=== PATIENT | female | born 1935 | race American Indian/Alaskan Native ===

== ENCOUNTER 2018-06-18 06:36 | Inpatient (IN) | payer MEDICARE, MEDICAID ==
[2018-06-18 06:37] VITALS: BMI 36.8
[2018-06-18 07:35] LABS: BASO # 0.1 K/uL (0.0-0.2); BASO % 1.1 % (0.0-2.0); EOS # 0.2 K/uL (0.0-0.7); EOS % 3.4 % (0.0-4.0); HEMOGLOBIN 10.6 g/dL (11.0-16.0); LYMPH # 0.8 K/uL (1.0-4.3); MEAN CELL VOLUME 76.3 fL (81.0-99.0); MEAN CORPUSCULAR HGB CONC 31.4 g/dL (33.0-37.0); MONO # 0.7 K/uL (0.0-0.8); NEUT # 5.5 K/uL (1.8-7.0); NEUT % 75.5 % (50.0-75.0); RBC 4.42 Mil/uL (3.80-5.20); RED CELL DISTRIBUTION WIDTH 19.1 % (11.5-14.5); WHITE BLOOD COUNT 7.3 K/uL (4.8-10.8)
[2018-06-18 07:41] LABS: INR 1.1; PROTHROMBIN TIME 11.8 SECONDS (9.7-12.2)
[2018-06-18 08:12] LABS: ALB/GLOB RATIO 1.7 (1.0-2.1); ALBUMIN 3.7 g/dL (3.5-5.0); CALCIUM 9.7 mg/dl (8.6-10.4)
[2018-06-18 08:17] LABS: TROPONIN I 0.02 ng/mL (0.00-0.120)
--- NOTE | 2018-06-18 08:48 | RAD ---
Date of service: 06/18/2018 PROCEDURE: CHEST RADIOGRAPH, 1 VIEW HISTORY: SOB COMPARISON: 12/01/2013. FINDINGS: LUNGS: The lungs are hyperinflated and there is peribronchial thickening with chronic changes in both lungs. There is moderate pulmonary venous congestion and mild interstitial pulmonary edema. Bibasilar atelectasis. No focal consolidation. PLEURA: No pneumothorax or pleural fluid seen. CARDIOVASCULAR: Moderate cardiomegaly. Status post CABG. OSSEOUS STRUCTURES: No significant abnormalities. VISUALIZED UPPER ABDOMEN: Normal. OTHER FINDINGS: None. IMPRESSION: No active pulmonary disease. COPD. Moderate cardiomegaly and moderate pulmonary venous congestion with mild interstitial pulmonary edema.
--- NOTE | 2018-06-18 08:52 | C.PDOC ---
History Of Present Illness 82 year old female presents to the ED with referral from Dr. Peralta for progressive dysphagia. Patient reports she feels something stuck in her throat when she swallows. She is able to tolerate PO normally. She denies any weight loss, throat pain, nausea, or vomiting. She states history of COPD but notes she is at baseline. Time Seen by Provider: 06/18/18 07:07 Chief Complaint (Nursing): Medical Clearance History Per: Patient History/Exam Limitations: no limitations Onset/Duration Of Symptoms: Days Current Symptoms Are (Timing): Still Present Reports Recently: Treated By A Physician (Referred by Dr. Peralta ) Past Medical History Reviewed: Historical Data, Nursing Documentation, Vital Signs Vital Signs: Last Vital Signs Temp 97.8 F 06/18/18 10:29 Pulse 65 06/18/18 10:29 Resp 18 06/18/18 10:29 BP 104/72 06/18/18 10:29 Pulse Ox 93 L 06/18/18 10:35 - Medical History PMH: CHF, COPD, HTN Surgical History: Tonsillectomy - [facility] Procedures CENTRAL VENOUS CATHETER PLACEMENT WITH GUIDANCE (11/27/13) LEFT HEART CARDIAC CATH (09/16/13) LT HEART ANGIOCARDIOGRAM (09/16/13) PACKED CELL TRANSFUSION (11/27/13) Family History: States: No Known Family Hx - Social History Hx Tobacco Use: No Hx Alcohol Use: No Hx Substance Use: No - Immunization History Hx Tetanus Toxoid Vaccination: No Hx Influenza Vaccination: Yes Hx Pneumococcal Vaccination: Yes Review Of Systems Except As Marked, All Systems Reviewed And Found Negative. Constitutional: Negative for: Weight loss ENT: Positive for: Other (progressive disphagia ). Negative for: Throat Pain Gastrointestinal: Negative for: Nausea, Vomiting Physical Exam - Physical Exam Appears: Non-toxic, No Acute Distress, Other (obese black female ) Skin: Warm, Dry, No Rash Head: Atraumatic, Normacephalic Eye(s): bilateral: Normal Inspection Nose: Normal Oral Mucosa: Moist Tongue: Normal Appearing Lips: Normal Appearing Teeth: Normal Dentition Gingiva: Normal Appearing Throat: Normal Neck: Supple Chest: Symmetrical Cardiovascular: Rhythm Regular, No Murmur Respiratory: No Rales, No Rhonchi, Wheezing (Mild scattered wheezing ) Neurological/Psych: Oriented x3, Normal Speech Gait: Steady ED Course And Treatment - Laboratory Results Result Diagrams: 06/18/18 07:29 06/18/18 07:29 Lab Interpretation: Abnormal (+ microcytic anemia, bnp/trop neg) ECG: Interpreted By Me ECG Rhythm: Sinus Rhythm ECG Interpretation: Normal Rate From EC O2 Sat by Pulse Oximetry: 93 Pulse Ox Interpretation: Normal (baseline for this pt) - Radiology CXR: Interpreted by Me CXR Interpretation: Yes: No Acute Disease Reevaluation Time: 08:51 Reassessment Condition: Unchanged - Physician Consult Information Outcome Of Conversation: 0715: d/w Dr. Peralta- plan for endoscopy later today. 0800: d/w Dr. Will, ok to admit Medical Decision Making Medical Decision Making: Impression: Dysphagia Orders: EKG UA On assessment, patient is at baseline for COPD. dysphagia baseline copd mild iron def anemia. Disposition Doctor Will See Patient In The: Hospital Counseled Patient/Family Regarding: Studies Performed, Diagnosis - Disposition Disposition: HOSPITALIZED Disposition Time: 08:52 Condition: GOOD - Clinical Impression Clinical Impression: Dysphagia, COPD (chronic obstructive pulmonary disease), Microcytic anemia - Scribe Statement The provider has reviewed the documentation as recorded by the Scribe Nicole Lomeli All medical record entries made by the Scribe were at my direction and personally dictated by me. I have reviewed the chart and agree that the record accurately reflects my personal performance of the history, physical exam, medical decision making, and the department course for this patient. I have also personally directed, reviewed, and agree with the discharge instructions and disposition.
[2018-06-18] MEDS ORDERED: Etomidate 20 mg/10ml Inj IV ONE (11:35)
[2018-06-18] MEDS ORDERED: Propofol 10 mg/ml Inj (20 ML) ONE (11:37)
[2018-06-18] MEDS ORDERED: Lactated Ringer's 1,000 ML IV ONE (11:45)
--- NOTE | 2018-06-18 14:32 | CP.PCM.PN ---
Subjective - Date & Time of Evaluation Date of Evaluation: 06/18/18 Time of Evaluation: 14:08 - Subjective Subjective: PGY2- Medicine progress note for Dr. Singh Patient was seen and examined at bedside in no acute distress. The patient reports feeling a sensation of "a piece of meat stuck" in her throat. She says she has been able to eat and drink without difficulty, however, she feels like theres something stuck for the past 1 week. She denies difficulty swallowing, painful swallowing, choking, and vomiting. The patient's last meal was yesterday and she had a BM yesterday as well. She says she has chronic constipation due to her iron pill, and only has a BM when she takes her Linzess (approximately 3 times per week). The patient currently denies chest pain, palpitations, dyspnea, abdominal pain, nausea, vomiting, fevers, headaches, diarrhea, and dysuria. PMHx: COPD, CHF, Gastric ulcer, gout SurgHx: CABG 2012, b/l cataract surgery 2016, tonsillectomy, hysterectomy, partial thyrdoidectomy FamHx: son-CHF, daughter- COPD & CHF, Mother-DM, Heart disease, Dad- HTN, CVA SocHx: Quit smoking tobacco in 2012; former tobacco use- 50pk-yr; Denies drug and alcohol use. Allergies: NKDA Medications: Feosol, Opsumit, Home Oxygen, Crestor, Spironolactone, Protonix, Lasix, Prednisone, Colcrys, Furosemide, Aspirin 81mg daily Objective - Vital Signs/Intake and Output Vital Signs (last 24 hours): Temp Pulse Resp BP Pulse Ox 96.9 F L 67 24 122/61 97 06/18/18 12:30 06/18/18 12:30 06/18/18 12:30 06/18/18 12:30 06/18/18 12:30 - Medications Medications: Current Medications Colchicine (Colocrys) 0.6 mg PO BID [facility] Furosemide (Lasix) 40 mg PO DAILY [facility] Home Med (Macitentan [Opsumit]) 10 mg PO DAILY [facility] Metoclopramide HCl (Reglan) 5 mg IVP Q8H [facility] Prednisone (Prednisone Tab) 10 mg PO DAILY [facility] Rosuvastatin Calcium (Crestor) 20 mg PO HS [facility] Spironolactone (Aldactone) 25 mg PO DAILY [facility] - Labs Labs: 06/18/18 07:29 06/18/18 07:29 PT 11.8 SECONDS (9.7-12.2) 06/18/18 07:29 INR 1.1 06/18/18 07:29 APTT 28 SECONDS (21-34) 06/18/18 07:29 - Constitutional Appears: No Acute Distress - Head Exam Head Exam: NORMAL INSPECTION - Eye Exam Eye Exam: EOMI, Normal appearance - ENT Exam ENT Exam: Mucous Membranes Moist - Neck Exam Neck Exam: Full ROM - Respiratory Exam Respiratory Exam: Rhonchi (b/l), NORMAL BREATHING PATTERN. absent: Wheezes, Respiratory Distress - Cardiovascular Exam Cardiovascular Exam: REGULAR RHYTHM, +S1, +S2 Additional comments: well healed sternal scar - GI/Abdominal Exam GI & Abdominal Exam: Soft, Normal Bowel Sounds. absent: Distended, Firm, Tenderness - Extremities Exam Extremities Exam: Pedal Edema (pitting edema extending up to knee b/l). absent : Tenderness - Neurological Exam Neurological Exam: Alert, Awake, Oriented x3 - Psychiatric Exam Psychiatric exam: Normal Affect, Normal Mood - Skin Skin Exam: Dry, Intact, Normal Color, Warm Assessment and Plan - Assessment and Plan (Free Text) Plan: Globus sensation - GI consulted, Dr. Pickard. Help appreciated - Endoscopy (06/18): LA grade B reflux esophagitis; medium sized hiatal hernia; large amount of food (residue) in the stomach; erythematous mucosa in anterior wall of stomach. - Per Dr. Pickard: - will repeat endoscopy 06/19 AM because of poor preparation - Full liquid diet - Follow up as outpatient in 5 weeks - Full liquid diet, NPO after midnight for endoscopy tomorrow - Reglan 5mg IV Q8h COPD - Continue home medication: Opsumit 10mg daily, prednisone 10mg po daily - O2 via [place] CHF - Continue home medications: Spironolactone 25mg po daily, Lasix 40mg po daily, Crestor 5mg po daily HX of Gastric Ulcer - Continue home medication: Protonic 40mg po daily Hx of Gout - Continue home medication: Colocrys 0.6mg po bid Prophylaxis - Protonix 40mg po daily - Full liquid diet, NPO after midnight Disposition: Patient is scheduled for repeat endoscopy with Dr. Pickard tomorrow, 06/19/18. Case discussed and management per Dr. Pickard.
[2018-06-19 05:06] LABS: URINE BILIRUBIN NEGATIVE (NEGATIVE); URINE BLOOD NEGATIVE (NEGATIVE); URINE CLARITY Clear (Clear); URINE COLOR Yellow (YELLOW); URINE GLUCOSE (UA) NORMAL (Normal)
[2018-06-19 05:07] LABS: SQUAMOUS EPITHIAL < 1 /hpf (0-5); URINE LEUKOCYTE ESTERASE NEG Leu/uL (Negative); URINE PROTEIN NEGATIVE (NEGATIVE); URINE UROBILINOGEN NORMAL mg/dL (0.2-1.0)
--- NOTE | 2018-06-19 07:51 | CP.PCM.PN ---
Subjective - Date & Time of Evaluation Date of Evaluation: 06/19/18 Time of Evaluation: 07:49 - Subjective Subjective: PGY2- Progress note for Dr. Singh Patient was seen and examined at bedside in no acute distress. Patient states she has no complaints except for the same feeling of a "lump in her throat". That sensation has not improved or worsened. She denies chest pain, palpitations , abdominal pain, dyspnea, nausea, vomiting, fevers, headaches, leg pain, difficulty swallowing, and sore throat. Objective - Vital Signs/Intake and Output Vital Signs (last 24 hours): Temp Pulse Resp BP Pulse Ox 98.2 F 65 20 108/58 L 95 06/19/18 00:03 06/19/18 00:03 06/19/18 00:03 06/19/18 00:03 06/19/18 00:03 Intake and Output: 06/19/18 06/19/18 06:59 18:59 Intake Total 0 Balance 0 - Medications Medications: Current Medications Colchicine (Colocrys) 0.6 mg PO BID [facility] Last Admin: 06/18/18 19:40 Dose: 0.6 mg Enoxaparin Sodium (Lovenox) 40 mg SC DAILY [facility] Furosemide (Lasix) 40 mg PO DAILY [facility] Home Med (Patient's Own Medication) 1 tab PO DAILY [facility] Metoclopramide HCl (Reglan) 5 mg IVP Q8H [facility] Last Admin: 06/19/18 04:03 Dose: 5 mg Pantoprazole Sodium (Protonix Ec Tab) 40 mg PO DAILY [facility] Prednisone (Prednisone Tab) 10 mg PO DAILY [facility] Rosuvastatin Calcium (Crestor) 20 mg PO [facility] Last Admin: 06/18/18 21:47 Dose: 20 mg Spironolactone (Aldactone) 25 mg PO DAILY [facility] - Labs Labs: 06/18/18 07:29 06/18/18 07:29 PT 11.8 SECONDS (9.7-12.2) 06/18/18 07:29 INR 1.1 06/18/18 07:29 APTT 28 SECONDS (21-34) 06/18/18 07:29 - Additional Findings Additional findings: - Constitutional Appears: No Acute Distress - Head Exam Head Exam: NORMAL INSPECTION - Eye Exam Eye Exam: EOMI, Normal appearance - ENT Exam ENT Exam: Mucous Membranes Moist - Neck Exam Neck Exam: Full ROM - Respiratory Exam Respiratory Exam: Rhonchi (b/l), NORMAL BREATHING PATTERN. absent: Wheezes, Respiratory Distress - Cardiovascular Exam Cardiovascular Exam: REGULAR RHYTHM, +S1, +S2 Additional comments: well healed sternal scar - GI/Abdominal Exam GI & Abdominal Exam: Soft, Normal Bowel Sounds. absent: Distended, Firm, Tenderness - Extremities Exam Extremities Exam: Pedal Edema (pitting edema extending up to knee b/l). absent : Tenderness - Neurological Exam Neurological Exam: Alert, Awake, Oriented x3 - Psychiatric Exam Psychiatric exam: Normal Affect, Normal Mood - Skin Skin Exam: Dry, Intact, Normal Color, Warm Assessment and Plan - Assessment and Plan (Free Text) Plan: Globus sensation - GI consulted, Dr. Pickard. Help appreciated - Endoscopy (06/18): LA grade B reflux esophagitis; medium sized hiatal hernia; large amount of food (residue) in the stomach; erythematous mucosa in anterior wall of stomach. - Endoscopy (06/19): Medium sized hiatal hernia; gastritis (biopsied); erythematous duodenopathy; single duodenal polyp - Per Dr. Pickard: - Repeated endoscopy on 06/19 because of poor preparation - Start Sucralfate suspension 1g PO BID for 8 weeks - Start Zantac 300mg PO daily for 8 weeks - Follow up as outpatient in 5 weeks for pathology results, abdominal US, and continued outpatient management, - Reglan 5mg IV Q8h Elevated CEA - CEA 11.3 - Scheduled for colonoscopy on 06/20/[address] Pickard COPD - Continue home medication: Opsumit 10mg daily, prednisone 10mg po daily - O2 via [place] CHF - Continue home medications: Spironolactone 25mg po daily, Lasix 40mg po daily, Crestor 5mg po daily HX of Gastric Ulcer - Continue home medication: Protonix 40mg po daily Hx of Gout - Continue home medication: Colocrys 0.6mg po bid Prophylaxis - Protonix 40mg po daily - Liquid diet, NPO after midnight for colonoscopy on 06/20/18 Case discussed and management per Dr. Singh.
--- NOTE | 2018-06-19 08:05 | HP ---
HISTORY OF PRESENT ILLNESS: This is an 82-year-old female with history of severe dysphagia with weight loss. Came to the ER, advised admission. PHYSICAL EXAMINATION: GENERAL: The patient is awake, alert, oriented. VITAL SIGNS: Temperature 98, pulse 90. HEENT: Within normal limits. NECK: Supple. CHEST: Symmetrical. HEART: Regular. ABDOMEN: Soft. EXTREMITIES: No edema. ASSESSMENT AND PLAN: The patient suffers from dysphagia. Patient get bed rest, IV fluid . Leigh Ann Singh MD
[2018-06-19] MEDS: Pantoprazole 40 mg EC Tab PO SCH (10:11)
[2018-06-19] MEDS: Enoxaparin 40 mg Syringe SC SCH (10:11)
[2018-06-19 11:08] LABS: MEAN CELL VOLUME 76.8 fL (81.0-99.0); MONO # 0.5 K/uL (0.0-0.8); NRBC % 0.1 % (0.0-2.0)
[2018-06-19 11:27] LABS: ALB/GLOB RATIO 1.7 (1.0-2.1); ALBUMIN 4.2 g/dL (3.5-5.0); ALT/SGPT 43 U/L (9-52); AST/SGOT 25 U/L (14-36); BLOOD UREA NITROGEN 22 mg/dL (7-17); CALCIUM 10.3 mg/dl (8.6-10.4); GFR AFRICAN-AMERICAN > 60; GFR NON-AFRICAN AMERICAN 60
[2018-06-19 11:41] LABS: BASO % 0.3 % (0.0-2.0); EOS # 0.2 K/uL (0.0-0.7); EOS % 3.8 % (0.0-4.0); HEMOGLOBIN 12.1 g/dL (11.0-16.0); LYMPH # 0.8 K/uL (1.0-4.3); LYMPH % 12.6 % (20.0-40.0); MEAN CORPUSCULAR HEMOGLOBIN 24.1 pg (27.0-31.0); MEAN CORPUSCULAR HGB CONC 31.3 g/dL (33.0-37.0); MEAN PLATELET VOLUME 9.1 fL (7.2-11.7); MONO % 8.3 % (0.0-10.0); NEUT # 4.9 K/uL (1.8-7.0); RBC 5.03 Mil/uL (3.80-5.20); RED CELL DISTRIBUTION WIDTH 18.9 % (11.5-14.5); WHITE BLOOD COUNT 6.5 K/uL (4.8-10.8)
[2018-06-19] MEDS ORDERED: Propofol 10 mg/ml Inj (20 ML) ONE (12:28)
[2018-06-19] MEDS: Lactated Ringer's 500 ML IV SCH (14:07)
[2018-06-19] MEDS ORDERED: Peg-Electrolyte Oral Soln 4L (Golytely) PO ONE (14:30)
--- NOTE | 2018-06-19 14:55 | CARD ---
APPROVED REPORT Date of service: 06/18/2018 EKG Measurement Heart [id number] <Conclusion> Normal sinus rhythm Right bundle branch block Abnormal ECG
[2018-06-19] MEDS ORDERED: Bisacodyl 5mg EC Tab PO ONE (17:00)
[2018-06-19] MEDS: Sucralfate 1 gm/10 ml Oral Susp UD PO SCH (21:47)
[2018-06-20] MEDS: Lactated Ringer's 500 ML IV SCH ×2 (03:22→09:00)
[2018-06-20] MEDS ORDERED: Bisacodyl 5mg EC Tab PO ONE (05:15)
--- NOTE | 2018-06-20 07:38 | CP.PCM.PN ---
Subjective - Date & Time of Evaluation Date of Evaluation: 06/20/18 Time of Evaluation: 07:00 - Subjective Subjective: PGY2 Progress note for Dr. Singh Patient seen and examined at bedside and in no acute distress. Patient states she has no complaints except for the same feeling of a "lump in her throat". That sensation has not improved or worsened. She denies chest pain, palpitations , abdominal pain, dyspnea, nausea, vomiting, fevers, headaches, leg pain, difficulty swallowing, and sore throat. Objective - Vital Signs/Intake and Output Vital Signs (last 24 hours): Temp Pulse Resp BP Pulse Ox 98.1 F 73 20 105/58 L 96 06/19/18 23:17 06/19/18 23:17 06/19/18 23:17 06/19/18 23:17 06/19/18 23:17 Intake and Output: 06/20/18 06/20/18 06:59 18:59 Intake Total 1630 Balance 1630 - Medications Medications: Current Medications Colchicine (Colocrys) 0.6 mg PO BID [facility] Last Admin: 06/19/18 17:51 Dose: 0.6 mg Enoxaparin Sodium (Lovenox) 40 mg SC DAILY [facility] Last Admin: 06/19/18 10:11 Dose: Not Given Furosemide (Lasix) 40 mg PO DAILY [facility] Last Admin: 06/19/18 10:11 Dose: Not Given Home Med (Patient's Own Medication) 1 tab PO DAILY [facility] Last Admin: 06/19/18 10:11 Dose: Not Given Lactated Ringer's (Lactated Ringer's 500ml) 500 mls @ 75 mls/hr IV .Q6H40M [facility] Last Admin: 06/20/18 03:22 Dose: Not Given Metoclopramide HCl (Reglan) 5 mg IVP Q8H [facility] Last Admin: 06/20/18 03:23 Dose: 5 mg Pantoprazole Sodium (Protonix Ec Tab) 40 mg PO DAILY [facility] Last Admin: 06/19/18 10:11 Dose: Not Given Prednisone (Prednisone Tab) 10 mg PO DAILY [facility] Last Admin: 06/19/18 10:11 Dose: Not Given Rosuvastatin Calcium (Crestor) 20 mg PO HS [facility] Last Admin: 06/19/18 21:48 Dose: 20 mg Spironolactone (Aldactone) 25 mg PO DAILY [facility] Last Admin: 06/19/18 10:11 Dose: Not Given Sucralfate (Carafate Oral Susp) 1 gm PO ACBHS [facility] Last Admin: 06/19/18 21:47 Dose: 1 gm - Labs Labs: 06/19/18 11:00 06/19/18 11:00 PT 11.8 SECONDS (9.7-12.2) 06/18/18 07:29 INR 1.1 06/18/18 07:29 APTT 28 SECONDS (21-34) 06/18/18 07:29 - Additional Findings Additional findings: - Constitutional Appears: No Acute Distress - Head Exam Head Exam: NORMAL INSPECTION - Eye Exam Eye Exam: EOMI, Normal appearance - ENT Exam ENT Exam: Mucous Membranes Moist - Neck Exam Neck Exam: Full ROM - Respiratory Exam Respiratory Exam: Rhonchi (b/l), NORMAL BREATHING PATTERN. absent: Wheezes, Respiratory Distress - Cardiovascular Exam Cardiovascular Exam: REGULAR RHYTHM, +S1, +S2 Additional comments: well healed sternal scar - GI/Abdominal Exam GI & Abdominal Exam: Soft, Normal Bowel Sounds. absent: Distended, Firm, Tenderness - Extremities Exam Extremities Exam: Pedal Edema (pitting edema extending up to knee b/l). absent : Tenderness - Neurological Exam Neurological Exam: Alert, Awake, Oriented x3 - Psychiatric Exam Psychiatric exam: Normal Affect, Normal Mood - Skin Skin Exam: Dry, Intact, Normal Color, Warm Assessment and Plan - Assessment and Plan (Free Text) Assessment: Globus sensation - GI consulted, Dr. Pickard. Help appreciated - Endoscopy (06/18): LA grade B reflux esophagitis; medium sized hiatal hernia; large amount of food (residue) in the stomach; erythematous mucosa in anterior wall of stomach. - Endoscopy (06/19): Medium sized hiatal hernia; gastritis (biopsied); erythematous duodenopathy; single duodenal polyp - Per Dr. Pickard: - Repeated endoscopy on 06/19 because of poor preparation - Start Sucralfate suspension 1g PO BID for 8 weeks - Start Zantac 300mg PO daily for 8 weeks - Follow up as outpatient in 5 weeks for pathology results, abdominal US, and continued outpatient management, - Reglan 5mg IV Q8h Elevated CEA - CEA 11.3 - colonoscopy done today COPD - Continue home medication: Opsumit 10mg daily, prednisone 10mg po daily - O2 via [place] CHF - Continue home medications: Spironolactone 25mg po daily, Lasix 40mg po daily, Crestor 5mg po daily HX of Gastric Ulcer - Continue home medication: Protonix 40mg po daily Hx of Gout - Continue home medication: Colocrys 0.6mg po bid Prophylaxis - Protonix 40mg po daily Case discussed and management per Dr. Singh. Patient stable for discharge as per Dr. Singh. Patient to follow up with Dr. Pickard (GI) in 5 weeks for pathology results and continued outpatient management. Patient to follow up with Dr. Singh within 2 weeks. Patient to continue home medications. Patient to take the following new medications: Sucralfate suspension 1g by mouth twice a day for 8 weeks Zantac 300mg by mouth daily for 8 weeks Patient to return to Emergency if symptoms return. Patient explained instructions who understands and agrees.
[2018-06-20] MEDS: Sucralfate 1 gm/10 ml Oral Susp UD PO SCH (07:59)
[2018-06-20] MEDS: Pantoprazole 40 mg EC Tab PO SCH ×2 (10:13→14:05)
[2018-06-20] MEDS: Enoxaparin 40 mg Syringe SC SCH (10:13)
[2018-06-20] MEDS ORDERED: Lactated Ringer's 1,000 ML IV SCH (11:33)
[2018-06-20] MEDS ORDERED: Propofol 10 mg/ml Inj (20 ML) ONE (12:11)
[2018-06-20 16:52] VITALS: BP 112/70; PULSE 78; RESP 18; TEMP 98.7; O2SAT 90
== END 2018-06-20 18:03 | disposition home or self-care (01) | DRG 392 ==
LOC: C.ER 06:36 → C.9E 07:54 → C.9S 13:50 → C.3T 16:56 → OBSVTOIN 06-19 07:52
PROVIDERS: ADMIT Internal Medicine Pulmonary Disease; ATTEND Internal Medicine Pulmonary Disease
PROC: 0DJ08ZZ Inspection of Upper Intestinal Tract, Via Natural or Artificial Opening Endoscopic (ICD-10-PCS; 2018-06-18)
PROC: 0DB88ZX Excision of Small Intestine, Via Natural or Artificial Opening Endoscopic, Diagnostic (ICD-10-PCS; principal; 2018-06-19 12:30)
PROC: 0DBE8ZX Excision of Large Intestine, Via Natural or Artificial Opening Endoscopic, Diagnostic (ICD-10-PCS; 2018-06-20)
DX: K21.0 Gastro-esophageal reflux disease with esophagitis (principal); R13.10 Dysphagia, unspecified; D50.9 Iron deficiency anemia, unspecified; I11.0 Hypertensive heart disease with heart failure; I50.9 Heart failure, unspecified; J44.9 Chronic obstructive pulmonary disease, unspecified; K31.7 Polyp of stomach and duodenum; K44.9 Diaphragmatic hernia without obstruction or gangrene; K29.70 Gastritis, unspecified, without bleeding; K57.30 Diverticulosis of large intestine without perforation or abscess without bleeding; R63.4 Abnormal weight loss; Z87.11 Personal history of peptic ulcer disease; Z95.1 Presence of aortocoronary bypass graft